=== PATIENT | female | born 1945 | race Caucasian/White ===

== ENCOUNTER 2017-01-02 23:04 | Emergency (ER) | payer MEDICARE ==
--- NOTE | 2017-01-02 23:13 | ED Physician Documentation ---
Chest Pain - HISTORIAN Historian: patient - HPI Chief Complaint: Chest Pain Onset: hours (1 hour ago) Timing: sudden onset Duration: persistent Last known Well Date: 01/02/17 Last Known Well Time: 22:00 Context: rest Severity: moderate Quality: sharp Chest Pain Radiation: no radiation Chest Pain Signs/Symptoms: other (cough, nonproductive). denies: nausea, vomiting, diaphoresis Worsened By: deep breaths, movement Relieved By: rest Further Comments: yes (Sudden onset of left chest pain, no preciptating cause noted. Has had a cough/cold for about one week, has been coughing a lot but seems to be some better today.) - ROS CONST: none GI/: denies: vomiting, nausea, diarrhea SKIN/ENDO: rash Comment: CLL, last WBC count 18,000 - PAST HX RI risk factors: no pertinent history Lung disease: COPD Surgeries/Procedures: cholecysectomy, appendectomy, other (c section) Immunizations: pneumovax, referred to PCP. denies: influenza, zostavax Allergies/Adverse Reactions: Allergies Allergy/AdvReac Type Severity Reaction Status Date / Time amoxicillin trihydrate AdvReac Hives Verified 01/02/17 23:20 [From Augmentin] potassium clavulanate AdvReac Hives Verified 01/02/17 23:20 [From Augmentin] Sulfa (Sulfonamide AdvReac Hives Verified 01/02/17 23:20 Antibiotics) Home Medications: Ambulatory Orders Medication Instructions Recorded Atorvastatin Calcium 10 mg PO QDAY 01/02/17 Bupropion HCl [Wellbutrin Xl] 150 mg PO QDAY 01/02/17 Omeprazole [Prilosec] 40 mg PO QDAY 01/02/17 Azithromycin [Zithromax] 250 mg PO DAILY #4 tablet 01/03/17 - SOCIAL HX Smoking History: greater than 1 pack/day Alcohol Use: none Drug Use: none - FAMILY HX Family HX: CAD over 55, other (hyperlipidemia, CAD) - REVIEWED ASSESSMENTS Nursing Assessment Reviewed: Yes Vitals Reviewed: Yes Progress - Progress Progress: 0006 Chest pain is some better. Still sharp grabbing with a deep breath or movement 0050 Post Toradol injection her pain is much better, almost able to take a deep breath at this time - EKG/XRAY/CT EKG: ST depression (V4 and V5, Mild) ED Results Lab/Radiology - Radiology Radiology Impressions: Chest, 1 view History: LEFT CHEST WALL PAIN, PT HAD PAIN WHEN TAKING A DEEP BREATH Findings: The heart size is normal. Mild atherosclerosis is present of the aorta. The lungs are clear. There is no pleural effusion or pneumothorax identified. The osseous structures are normal. Impression: 1. No acute pulmonary disease. Computed tomography of the chest with contrast History: Pleuritic chest pain and elevated d-dimer Findings: Transverse chest sections are obtained after 90 mL intravenous omnipaque 350. Several borderline enlarged right axillary lymph nodes are present. Coronary artery calcification is observed. There is no evidence of acute pulmonary embolism. Mild atherosclerosis observed. Heart size is normal. Minimal anterior segment left upper lobe infiltrate is present. Minimal nodular infiltrate is present in the superior segment of the left lower lobe. Calcified granulomas are present. 2 tiny posterior left lower lobe nodules are present. Early emphysema is observed. Abdomen sections reveal cholecystectomy. Impression: 1. No evidence for acute pulmonary embolism. 2. Tiny left lower lobe nodules. Recommend noncontrast chest CT followup in 6 months. 3. Minimal left upper lobe and left lower lobe infiltrate. 4. Early emphysema. 5. Shotty right axillary lymph nodes. Recommend mammographic and sonographic followup. Chest Pain Physical Exam - EXAM General Appearance: alert, moderate distress EENT: ENT inspection normal, pharynx normal Neck: nml inspection, no carotid bruit, JVD present Respiratory: no resp. distress, nml breath sounds, manifests distinct pain on movement, left, splinting, other (tenderness to palpation over the left costomanubrial boarder at the 5th-6th rib level). No: wheezes, rales, rhonchi CVS: reg. rate & rhythm, no murmur, no gallop, no friction rub, pulses full Abdomen: soft, no organomegaly, normal bowel sounds, no abdominal bruit, no distension, non-tender Extremities: non-tender, normal range of motion, no evidence of injury, no edema Neuro: oriented X3, mood/affect nml, cognition normal Discharge Clincal Impression: Anterior chest wall pain, Pneumonia Referrals: Primary Doctor,No [Primary Care Provider] - 2 Days Additional Instructions: Take Azithromycin 250mg daily. To see [facility] tomorrow. Take some Aleve 220mg tablets, two tablets twice a day with food or ibuprofen 200mg, three tablets three times a day. Try using a warm/cool compress to the chest area. If your symptoms get worse to return to the ED. Home Medications: Ambulatory Orders Atorvastatin Calcium 10 mg PO QDAY 01/02/17 Bupropion HCl [Wellbutrin Xl] 150 mg PO QDAY 01/02/17 Omeprazole [Prilosec] 40 mg PO QDAY 01/02/17 Azithromycin [Zithromax] 250 mg PO DAILY #4 tablet 01/03/17 Condition: Stable Disposition: 01 HOME, SELF-CARE Decision to Admit: NO Date of Decison to Admit: 01/03/17 Decision Time: 00:57
[2017-01-02] MEDS: ASPIRIN 81 MG CHEW TAB PO ONE (23:17)
[2017-01-02 23:22] LABS: BASOPHILS % 0.9 (0.0-1.5); EOSINOPHILS % 1.4 % (0.0-6.8); MEAN CORPUSCULAR HEMOGLOBIN 31.3 pg (28.0-34.0); MEAN CORPUSCULAR VOLUME 92.2 fl (80.0-100.0); MONOCYTES % 3.8 % (0.0-11.0); NEUTROPHILS # 5.8 # k/uL (1.4-7.7)
[2017-01-02 23:32] LABS: eGFR (African) > 60; eGFR (Non-African) > 60
[2017-01-03] MEDS: KETOROLAC TROMETHAMINE 30 MG/1ML VIAL IVP ONE (00:11)
[2017-01-03] MEDS ORDERED: AZITHROMYCIN 250 MG TABLET PO ONE (00:57)
[2017-01-03 01:16] VITALS: BP 128/74
--- NOTE | 2017-01-03 06:50 | Diagnostic Imaging Report ---
ELIZABETH RIVERS [facility] [address] [facility] [address] [address] Report Submission Date: Jan 02, 2017 11:39:25 PM CDT Patient Study Name: NAKIA CRONIN Date: Jan 02, 2017 11:21:49 PM CDT Modality Type: CR Gender: F Description: CHEST : 47 Institution: [facility] Physician: ELIZABETH RIVERS Chest, 1 view History: LEFT CHEST WALL PAIN, PT HAD PAIN WHEN TAKING A DEEP BREATH Findings: The heart size is normal. Mild atherosclerosis is present of the aorta. The lungs are clear. There is no pleural effusion or pneumothorax identified. The osseous structures are normal. Impression: 1. No acute pulmonary disease. Electronically signed on Jan 02, 2017 11:39:25 PM CDT by: Tee RANGEL
--- NOTE | 2017-01-03 06:50 | Diagnostic Imaging Report ---
ELIZABETH RIVERS [facility] [address] [facility].[address] [address] Report Submission Date: Jan 03, 2017 12:47:40 AM CDT Patient Study Name: NAKIA CRONIN Date: Jan 03, 2017 12:22:44 AM CDT Modality Type: CT\SR Gender: F Description: CT CHEST W/ CONTRAST : 47 Institution: [facility] Physician: ELIZABETH RIVERS Computed tomography of the chest with contrast History: Pleuritic chest pain and elevated d-dimer Findings: Transverse chest sections are obtained after 90 mL intravenous omnipaque 350. Several borderline enlarged right axillary lymph nodes are present. Coronary artery calcification is observed. There is no evidence of acute pulmonary embolism. Mild atherosclerosis observed. Heart size is normal. Minimal anterior segment left upper lobe infiltrate is present. Minimal nodular infiltrate is present in the superior segment of the left lower lobe. Calcified granulomas are present. 2 tiny posterior left lower lobe nodules are present. Early emphysema is observed. Abdomen sections reveal cholecystectomy. Impression: 1. No evidence for acute pulmonary embolism. 2. Tiny left lower lobe nodules. Recommend noncontrast chest CT followup in 6 months. 3. Minimal left upper lobe and left lower lobe infiltrate. 4. Early emphysema. 5. Shotty right axillary lymph nodes. Recommend mammographic and sonographic followup. Electronically signed on Jan 03, 2017 12:47:40 AM CDT by: Hernandez RANGEL
== END 2017-01-03 01:10 | disposition home or self-care (01) ==
LOC: ED 23:04
DX: J18.9 Pneumonia, unspecified organism (principal); R07.89 Other chest pain
CPT/HCPCS: 71010; 71260; 80053; 84484; 85025; 85379; 93005; J1885; 96372; 99283; S1016

== ENCOUNTER → 2017-02-25 | Emergency (ER) | payer MEDICARE ==
[~2017-02-25] MED LIST: 0.9 % SODIUM CHLORIDE 1,000 ML IV ONE; 0.9 % SODIUM CHLORIDE 50 ML IV ONE; cefTRIAXone SODIUM 1 GM VIAL ONE
--- NOTE | 2017-02-25 23:55 | ED Physician Documentation ---
General Adult - HISTORIAN Historian: patient - HPI Stated Complaint: left chest pain Chief Complaint: General Adult Additional Information: Sudden onset CP while sitting in recliner. Feels like sandpaper rubbing when she takes a deep breath or moves. Feels like pneumonia she had a few weeks ago. Dry cough. No sweats or fever. Seen in this ER 01/02, and dx'ed with CAP, treated with a z pack. Per records from [facility], pt hospitalized there 01/08-01/12 with pneumonia, cavitary lesion on CT determined NOT TB, and treated with clindamycin. December CT scan here showed axillary nodes. Onset: minutes - ROS CONST: recent illness (see above) - PAST HX Past History: COPD, other (CLL) Allergies/Adverse Reactions: Allergies Allergy/AdvReac Type Severity Reaction Status Date / Time amoxicillin trihydrate AdvReac Hives Verified 02/25/17 23:40 [From Augmentin] potassium clavulanate AdvReac Hives Verified 02/25/17 23:40 [From Augmentin] Sulfa (Sulfonamide AdvReac Hives Verified 02/25/17 23:40 Antibiotics) Home Medications: Ambulatory Orders Medication Instructions Recorded Atorvastatin Calcium 10 mg PO QDAY 01/02/17 Bupropion HCl [Wellbutrin Xl] 150 mg PO QDAY 01/02/17 Omeprazole [Prilosec] 40 mg PO QDAY 01/02/17 Budesonide/Formoterol Fumarate 2 puff INH BID 02/25/17 [Symbicort 160-4.5 Mcg Inhaler] Amoxicillin [Trimox] 500 mg PO TID #30 capsule 02/26/17 Ascorbic Acid [Vitamin C] 1,000 mg PO D 02/26/17 Aspirin EC [Ecotrin] 81 mg PO D 02/26/17 Cetirizine HCl [Zyrtec] 10 mg PO D 02/26/17 Cholecalciferol [Vitamin D-3] 5,000 mg PO D 02/26/17 Doxycycline Hyclate 100 mg PO BID #20 tablet 02/26/17 Ipratropium [place] [Atrovent] 1 puff INH D 02/26/17 Tramadol HCl [Ultram] 50 mg PO Q4H PRN #15 tablet 02/26/17 Ubidecarenone [Co Q-10] 50 mg PO D 02/26/17 - SOCIAL HX Smoking History: cigarettes (66 years, 1 PPD) - FAMILY HX Family History: No - VITAL SIGNS Vital Signs: Vital Signs Temp Pulse Resp BP Pulse Ox 98.1 F 91 H 20 98/61 97 02/25/17 23:31 02/25/17 23:31 02/25/17 23:31 02/25/17 23:31 02/25/17 23:31 - REVIEWED ASSESSMENTS Nursing Assessment Reviewed: Yes Vitals Reviewed: Yes Progress - Progress Progress: Name: NAKIA CRONIN Date: Feb 25, 2017 11:56:05 PM CDT Modality Type: CR Gender: F Description: CHEST : 47 Institution: [facility] Physician: WAYLON VALDEZ - ER Chest 2 views History: Left-sided chest pain and pneumonia Findings: Lingular infiltrate or mass is present. This was not observed on the January 02, 2017 chest radiograph. The right lung is clear. Hyperinflation and old granulomatous disease are observed. There is no parapneumonic effusion. Heart size is normal. Impression: Hyperinflation and lingular infiltrate versus mass. Recommend short- term radiographic followup to confirm resolution after treatment. If persistent , chest CT is indicated. Electronically signed on Feb 26, 2017 12:08:36 AM CDT by: Hernandez Green ED Results Lab/Radiology - Orders Orders: ED Orders Category Date Time Status Continuous EKG monitoring Q1H Care 02/25/17 23:45 Active Continuous Pulse Oximetry Q1H Care 02/25/17 23:[address] IV Lock 1T Care 02/25/17 23:45 Active CHEST P.A.&LAT 2 VIEWS [RAD] Stat Exams 02/25/17 Ordered BLOOD CULTURE Stat Lab 02/25/17 Ordered CBC/PLATELET/DIFF Routine Lab 02/25/17 Ordered CMP Routine Lab 02/25/17 Ordered TROPONIN I (cTnI) Stat Lab 02/25/17 Ordered URINALYSIS Routine Lab 02/25/17 Ordered EKG WITH COMPARISON Stat Ther 02/25/17 Ordered General Adult Physical Exam - PHYSICAL EXAM GENERAL APPEARANCE: mild distress EENT: eye inspection normal, ENT inspection normal, pharynx normal (Mallampati 2 ) NECK: normal inspection, supple RESPIRATORY: no resp distress, breath sounds normal, other (palpation distal left sternal border reproduces pain) CVS: reg rate & rhythm, heart sounds normal, no murmur ABDOMEN: soft, normal bowel sounds, non-tender RECTAL: deferred BACK: normal inspection, no CVA tenderness, other (no vertebral tenderness) SKIN: warm/dry, normal color EXTREMITIES: non-tender, normal range of motion (transfers easily to and from stretcher ), no evidence of injury NEURO: CN's nml as tested, motor nml, sensation nml, cognition normal Discharge Clincal Impression: Anterior chest wall pain Pneumonia Qualifiers: Pneumonia type: due to unspecified organism Laterality: left Lung location: unspecified part of lung Qualified Code(s): J18.9 - Pneumonia, unspecified organism Prescriptions: Amoxicillin [Trimox] 500 mg PO TID #30 capsule Doxycycline Hyclate 100 mg PO BID #20 tablet Tramadol HCl [Ultram] 50 mg PO Q4H PRN #15 tablet PRN Reason: Pain Referrals: Primary Doctor,No [Primary Care Provider] - 2 Days Additional Instructions: Return to the ER with increased chest pain or if you are not getting better in 2 -3 days. Follow up with Regla Asencio in the next 5-10 days. Outpatient services will contact you with the next available date for a mammogram. Condition: Fair Disposition: 01 HOME, SELF-CARE Decision to Admit: NO Decision Time: 02:40
[2017-02-26 00:12] LABS: BASOPHILS % 0.6 (0.0-1.5); EOSINOPHILS % 1.2 % (0.0-6.8); MEAN CORPUSCULAR HEMOGLOBIN 30.2 pg (28.0-34.0); MEAN CORPUSCULAR VOLUME 89.9 fl (80.0-100.0); MONOCYTES % 3.5 % (0.0-11.0)
[2017-02-26 00:24] LABS: eGFR (African) > 60; eGFR (Non-African) > 60
[2017-02-26] MEDS: KETOROLAC TROMETHAMINE 30 MG/1ML VIAL IVP ONE (01:08)
[2017-02-26] MEDS: 0.9 % SODIUM CHLORIDE 500 ML IV ONE (01:08)
--- NOTE | 2017-02-26 01:18 | Diagnostic Imaging Report ---
WAYLON VALDEZ [facility] [address] Replaced By [facility] [address] [address] Report Submission Date: Feb 26, 2017 12:08:36 AM CDT Patient Study Name: NAKIA CRONIN Date: Feb 25, 2017 11:56:05 PM CDT Modality Type: CR Gender: F Description: CHEST : 47 Institution: [facility] Physician: WAYLON VALDEZ Chest 2 views History: Left-sided chest pain and pneumonia Findings: Lingular infiltrate or mass is present. This was not observed on the January 02, 2017 chest radiograph. The right lung is clear. Hyperinflation and old granulomatous disease are observed. There is no parapneumonic effusion. Heart size is normal. Impression: Hyperinflation and lingular infiltrate versus mass. Recommend short- term radiographic followup to confirm resolution after treatment. If persistent , chest CT is indicated. Electronically signed on Feb 26, 2017 12:08:36 AM CDT by: Hernandez RANGEL
[2017-02-26] MEDS: cefTRIAXone SODIUM ADVANTAGE 1 GM in NORMAL SALINE ADD-VANTAGE 50 ML IV ONE (01:47)
[2017-02-26] MEDS: HYDROcodone /APAP 5/325 1 EACH TABLET PO ONE (04:06)
[2017-02-26 04:12] VITALS: BP 114/61
[2017-02-26 05:48] LABS: APPEARANCE,URINE CLEAR (CLEAR); COLOR,URINE YELLOW (YELLOW)
[2017-02-26 05:49] LABS: OCCULT BLOOD,URINE 1+ (NEGATIVE); PH URINE 5.5 (5.0 - 8.0); UROBILINOGEN URINE 0.2 Eu (0.2-1.0)
== END | disposition home or self-care (01) ==
LOC: ED 23:25
DX: R07.89 Other chest pain (principal); J18.9 Pneumonia, unspecified organism
CPT/HCPCS: 71020; 80053; 81002; 84484; 85025; 87040; 99283; S1016

== ENCOUNTER 2017-08-10 12:43 | Outpatient (CLI) | payer MEDICARE ==
[2017-02-26 04:12] VITALS: BP 114/61
--- NOTE | 2017-08-10 17:51 | Diagnostic Imaging Report ---
JULIA MATUTE [facility] [address] [facility] [address] [address] Report Submission Date: Aug 10, 2017 1:20:05 PM CDT Patient Study Name: NAKIA CRONIN Date: Aug 10, 2017 12:51:06 PM CDT Modality Type: DX Gender: F Description: CHEST : 47 Institution: [facility] Physician: JULIA MATUTE Examination: PA and lateral chest. History: Evaluate lung erwin. CXR, WORSENING COUGH X3 DAYS, WHEEZE,PNEUMONIA, SMOKER, HX OF COPD (Hx) Comparison exam: 25 February 2017 Findings: PA lateral chest demonstrate a normal cardiac and mediastinal silhouette. Vascular calcifications involving the aortic arch. No focal infiltrate. No blunting of the costophrenic margins. Osseous structures are appropriate for age. Impression: No acute appearing pulmonary process. Electronically signed on Aug 10, 2017 1:20:05 PM CDT by: Víctor RANGEL
== END 2017-08-10 12:44 ==
LOC: RAD 12:43
PROVIDERS: ATTEND Family Medicine
DX: J18.9 Pneumonia, unspecified organism (principal)
CPT/HCPCS: 71046

== ENCOUNTER 2017-11-21 09:53 | Day surgery (SDC) | payer MEDICARE ==
[2017-02-26 04:12] VITALS: BP 114/61
--- NOTE | 2017-11-21 15:25 | GI Report ---
REFERRING PHYSICIAN: Dr. Benjamin Son CUT OFF SAWYER LOG: Naman Davidson MD PROCEDURE MEDICATION: Propofol as per anesthesia. INDICATIONS: This 72-year-old woman has had multiple polyps removed from colonoscopies in [facility] and [place]. She had an uncle with colon cancer. She has been a [id number] cigarette smoker and still smokes. She also has chronic leukemia. She varies from constipation to diarrhea. She has had a previous appendectomy, previous cholecystectomy, and . On exam before the procedure, she does have decreased breath sounds. No abdominal tenderness. PROCEDURE PERFORMED: Colonoscopy and polypectomy. PROCEDURE: An Olympus video colonoscope was advanced to the rectum and slowly advanced all the way to the cecum. The appendiceal orifice and ileocecal valve and base of the cecum were normal. She has had a previous appendectomy. The ascending colon and transverse colon with no obvious intraluminal lesions noted. The descending colon was normal until you get to the sigmoid. In the sigmoid, we removed 4 little flat polyps varying around 3 mm in size. At 20 cm, the patient had a 3 to 4 mm sessile polyp removed with electrocautery. Retroflexion of the rectum was normal. Patient tolerated the procedure well. FINDINGS: Five polyps removed, 4 in the sigmoid colon and the larger one at 20 cm that looked somewhat adenomatous. RECOMMENDATIONS: 1. Pending the pathology, she needs her colon re-looked at again in 5 years. 2. I recommend she discontinue tobacco usage which is a risk factor for colon cancer. 3. Increase bulk fiber in her diet. cc: Dr. Benjamin RANGEL
== END 2017-11-21 09:54 ==
LOC: OPSURG 09:53
PROVIDERS: ATTEND Internal Medicine Gastroenterology
DX: Z12.11 Encounter for screening for malignant neoplasm of colon (principal); K63.5 Polyp of colon; D12.5 Benign neoplasm of sigmoid colon; C95.10 Chronic leukemia of unspecified cell type not having achieved remission; R19.4 Change in bowel habit; F17.210 Nicotine dependence, cigarettes, uncomplicated
CPT/HCPCS: 88305; J2001; J2704; J7120; 45385; S1016

== ENCOUNTER 2018-05-03 15:15 | Outpatient (CLI) | payer MEDICARE ==
[2017-02-26 04:12] VITALS: BP 114/61
--- NOTE | 2018-05-03 15:43 | Diagnostic Imaging Report ---
JULIA MATUTE [facility] [address] [facility] [address] [place], [place]. [address] Report Submission Date: May 03, 2018 3:38:45 PM SEARCH ENGINEER Patient Study Name: NAKIA CRONIN Date: May 03, 2018 3:16:20 PM SEARCH ENGINEER Modality Type: DX Gender: F Description: CHEST : 47 Institution: [facility] Physician: JULIA MATUTE Examination: PA and lateral chest. History: Evaluate lung erwin. COUGH AND SOA X1 MONTH, PT STATES SHE HAS COPD (Hx Comparison exam: 10 August 2017 Findings: PA and lateral views of the chest demonstrates a normal cardiac and mediastinal silhouette. Few vascular calcifications involving the aortic arch. No focal infiltrate. No blunting of the costophrenic margins. Osseous structures are appropriate for age. Impression: No acute pulmonary process. Electronically signed on May 03, 2018 3:38:45 PM SEARCH ENGINEER by: Víctor RANGEL
== END 2018-05-03 15:17 ==
LOC: RAD 15:15
PROVIDERS: ATTEND Family Medicine
DX: R05 Cough (principal)
CPT/HCPCS: 71046

== ENCOUNTER 2018-07-10 20:37 | Observation (INO) | payer MEDICARE ==
--- NOTE | 2018-07-10 20:45 | ED Physician Documentation ---
General Adult - HISTORIAN Historian: patient - HPI Stated Complaint: sob, chest pain Chief Complaint: General Adult Onset: hours Timing: still present Severity: moderate Further Comments: yes (Pt is a 73 yo female with sob and hx COPD. Pt has pain in her back which she attributes to her breathing and thinks may be pleurisy. Pt has no pain if she holds her breath. Pain is stabbing when it occurs. No n/v. No diaphoresis.) - ROS CONST: weakness EYES/ENT: none CVS/RESP: chest pain (pain in back), shortness of breath GI/: none MS/SKIN/LYMPH: none - PAST HX Past History: other (CLL, COPD, HLD) Surgeries/Procedures: cholecystectomy, other (appendectomy) Allergies/Adverse Reactions: Allergies Allergy/AdvReac Type Severity Reaction Status Date / Time egg Allergy Hives Verified 07/10/18 23:08 potassium clavulanate AdvReac Hives Verified 07/10/18 23:08 [From Augmentin] Sulfa (Sulfonamide AdvReac Hives Verified 07/10/18 23:08 Antibiotics) Home Medications: Ambulatory Orders Medication Instructions Recorded Atorvastatin Calcium 10 mg PO QDAY 01/02/17 Omeprazole [Prilosec] 40 mg PO QDAY 01/02/17 Budesonide/Formoterol Fumarate 2 puff INH BID 02/25/17 [Symbicort 160-4.5 Mcg Inhaler] Ascorbic Acid [Vitamin C] 1,000 mg PO D 02/26/17 Aspirin EC [Ecotrin] 81 mg PO D 02/26/17 Cetirizine HCl [Zyrtec] 10 mg PO D 02/26/17 Cholecalciferol [Vitamin D-3] 5,000 mg PO D 02/26/17 Ubidecarenone [Co Q-10] 50 mg PO D 02/26/17 Calcium Carbonate [Calcium] 1,000 mg PO DAILY u2 08/10/17 Fish Oil 1,000 Mg Softgel 4,000 mg PO DAILY av 08/10/17 Albuterol Sulfate [Ventolin HFN] 1 appl INH DIRECTED 07/10/18 - SOCIAL HX Smoking History: quit greater than 1 year Alcohol Use: none Drug Use: none - FAMILY HX Family History: No - VITAL SIGNS Vital Signs: Vital Signs Temp Pulse Resp BP Pulse Ox 114/61 02/26/17 03:25 - REVIEWED ASSESSMENTS Nursing Assessment Reviewed: Yes Vitals Reviewed: Yes Progress - Progress Progress: Duoneb HFN Toradol 15 mg IV [place] (5/325) 1 tab po in ER. Levaquin 500 mg IV CXR: Fine reticular opacities are present in each mid to lower lung. Heart size is normal. Minimal lingular atelectasis or scar is present. There is no pleural effusion. Aortic atherosclerosis is noted. Impression: Mild bilateral reticular opacity may represent edema or bronchitis. Admit to ER doctor, r/o GA, bronchitis, pleuritic pain. - EKG/XRAY/CT EKG: NSR (HR=84, normal axis, normal NM inteval, artifact.) - Additional EKG/XRAY/Consults EKG #2: NSR, nonspecific ST T wave chg (HR=82; normal axis; normal NM interval (repeated because of artifact on first EKG)) General Adult Physical Exam - PHYSICAL EXAM GENERAL APPEARANCE: moderate distress EENT: pharynx normal NECK: normal inspection, supple RESPIRATORY: no resp distress, chest non-tender, wheezes (mild) CVS: reg rate & rhythm, heart sounds normal ABDOMEN: soft, no organomegaly, normal bowel sounds BACK: normal inspection, no CVA tenderness SKIN: warm/dry, normal color EXTREMITIES: non-tender, normal range of motion, no evidence of injury NEURO: oriented X3, motor nml, sensation nml, other (anxious) Discharge Clincal Impression: chest pain, sob, bronchitis, pleurisy Referrals: Benjamin Son MD [Primary Care Provider] - Condition: Stable Disposition: ADMITTED INPATIENT Decision to Admit: NO Decision Time: 23:59
[2018-07-10] MEDS ORDERED: IPRATROPIUM/ALBUTEROL SULFATE 3 ML AMPUL.NEB NEB ONE (21:09)
[2018-07-10] MEDS ORDERED: KETOROLAC TROMETHAMINE 15 MG/ML VIAL IV ONE (21:31)
[2018-07-10] MEDS ORDERED: KETOROLAC TROMETHAMINE 30 MG/1ML VIAL ONE (21:36)
[2018-07-10 21:44] LABS: MEAN CORPUSCULAR HEMOGLOBIN 30.5 pg (28.0-34.0)
[2018-07-10 22:25] LABS: EOSINOPHILS % 1 % (0-7); MONOCYTES % 6 % (0-11); SEGMENTED NEUTROPHILS % 45 % (39-79)
[2018-07-10 22:26] LABS: HYPOCHROMASIA 1+ (NEGATIVE); PLT EST. EST. AGREES W/PLT CT
[2018-07-10] MEDS ORDERED: HYDROcodone /APAP 5/325 1 EACH TABLET PO ONE (23:18)
[2018-07-10] MEDS ORDERED: HYDROcodone /APAP 5/325 1 EACH TABLET PEG PRN (23:51)
[2018-07-10] MEDS ORDERED: LEVOFLOXACIN IN DEXTROSE 5 % 500 MG/100 ML BAG IV ONE (23:51)
[2018-07-11 00:41] VITALS: BMI 30.5
[2018-07-11] MEDS: ALBUTEROL SULFATE 2.5 MG/3 ML AMPUL.NEB NEB SCH ×3 (06:04→08:38)
--- NOTE | 2018-07-11 06:38 | Diagnostic Imaging Report ---
LEXUS MCMILLAN [facility] [address] [facility] [address] [address] Report Submission Date: Jul 10, 2018 9:34:11 PM [employer] Patient Study Name: NAKIA CRONIN Date: Jul 10, 2018 9:09:07 PM [employer] Modality Type: DX Gender: F Description: CHEST 1VIEW : 47 Institution: [facility] Physician: LEXUS MCMILLAN Portable chest History: Shortness of breath Findings: Fine reticular opacities are present in each mid to lower lung. Heart size is normal. Minimal lingular atelectasis or scar is present. There is no pleural effusion. Aortic atherosclerosis is noted. Impression: Mild bilateral reticular opacity may represent edema or bronchitis. Electronically signed on Jul 10, 2018 9:34:11 PM [employer]DEM M[employer] STICKER by: Hernandez RANGEL
[2018-07-11] MEDS ORDERED: ALBUTEROL SULFATE 2.5 MG/3 ML AMPUL.NEB NEB ONE (06:51)
[2018-07-11] MEDS ORDERED: methylPREDNISolone SOD SUCC 125 MG/2 ML VIAL IVP ONE (07:09)
[2018-07-11] MEDS ORDERED: ATORVASTATIN CALCIUM 20 MG TABLET PO ONE (07:37)
[2018-07-11] MEDS ORDERED: KETOROLAC TROMETHAMINE 30 MG/1ML VIAL IV ONE (08:33)
[2018-07-11] MEDS: IPRATROPIUM/ALBUTEROL SULFATE 3 ML AMPUL.NEB NEB SCH ×2 (08:38→13:40)
[2018-07-11] MEDS: HYDROcodone /APAP 5/325 1 EACH TABLET PO PRN ×2 (08:47→14:56)
[2018-07-11] MEDS ORDERED: SALINE FLUSH 10 ML DISP.SYRIN IV SCH (09:00)
[2018-07-11] MEDS ORDERED: ATORVASTATIN CALCIUM 10 MG TABLET PO SCH (09:00)
[2018-07-11] MEDS ORDERED: CHOLECALCIFEROL (VIT D3) 1,000 UNIT TABLET PO SCH (09:00)
[2018-07-11] MEDS ORDERED: CALCIUM CARB 500 MG TAB.CHEW PO SCH (09:00)
[2018-07-11] MEDS ORDERED: methylPREDNISolone SOD SUCC 40 MG/ML VIAL IVP SCH (12:00)
[2018-07-11 12:10] LABS: COLOR,URINE YELLOW (YELLOW)
[2018-07-11 12:11] LABS: APPEARANCE,URINE CLEAR (CLEAR); OCCULT BLOOD,URINE NEGATIVE (NEGATIVE); PH URINE 5.5 (5.0 - 8.0); UROBILINOGEN URINE 0.2 Eu (0.2-1.0)
--- NOTE | 2018-07-11 17:42 | Discharge Summary ---
Discharge Summary - Discharge Sumary History of Present Illness: Patient presented to ED with pleuritic chest pain. Chest xray shows probable bronchitis. Patient was admitted for chest pain and ruled out with serial troponins and EKG, all which were negative. Additional Instructions: 1. Levaquin daily x 7 days. 2. Prednisone taper as directed. 3. Use Logan sparingly. 4. Follow up with PCP within 3 days. Condition at Discharge: Stable Home Medications: Ambulatory Orders Medication Instructions Recorded Atorvastatin Calcium 10 mg PO QDAY 01/02/17 Omeprazole [Prilosec] 40 mg PO QDAY 01/02/17 Budesonide/Formoterol Fumarate 2 puff INH BID 02/25/17 [Symbicort 160-4.5 Mcg Inhaler] Ascorbic Acid [Vitamin C] 1,000 mg PO D 02/26/17 Aspirin EC [Ecotrin] 81 mg PO D 02/26/17 Cetirizine HCl [Zyrtec] 10 mg PO D 02/26/17 Cholecalciferol [Vitamin D-3] 5,000 mg PO D 02/26/17 Ubidecarenone [Co Q-10] 50 mg PO D 02/26/17 Calcium Carbonate [Calcium] 1,000 mg PO DAILY u2 08/10/17 Fish Oil 1,000 Mg Softgel 4,000 mg PO DAILY av 08/10/17 Albuterol Sulfate [Ventolin HFN] 1 appl INH DIRECTED 07/10/18 Consultations this Visit: None Procedures this Visit: None Allergies/Adverse Reactions: Allergies Allergy/AdvReac Type Severity Reaction Status Date / Time egg Allergy Mild Hives Verified 07/11/18 07:45 potassium clavulanate Allergy Hives Verified 07/11/18 07:45 [From Augmentin] Sulfa (Sulfonamide Allergy Hives Verified 07/11/18 07:45 Antibiotics) Discharge Summary: Patient was admitted for chest pain rule out and bronchitis. Serial troponins and EKG was negative for ischemia. Solumedrol, Duoneb, Levaquin and norco was utilized as treatment plan. Patient took Logan readily. Patient was discharged in good condition improved from admission.
[2018-07-11 18:04] VITALS: BP 133/59
== END 2018-07-11 18:40 | disposition home or self-care (01) ==
LOC: ED 20:37 → SOUTH 23:47
PROVIDERS: ADMIT Physician Assistant Medical; ATTEND Physician Assistant Medical
DX: J40 Bronchitis, not specified as acute or chronic (principal); J44.9 Chronic obstructive pulmonary disease, unspecified; R07.89 Other chest pain; M54.5 Low back pain; R09.1 Pleurisy
CPT/HCPCS: 71045; 80053; 81002; 82550; 82553; 83880; 84484; 85025; 85379; 93005; 94640; 94760; 96374; 96375; 99283; A9270; G0378; J1030; J1885; J1956; J2930; 99217; J2920; S1016

== ENCOUNTER 2018-09-23 13:16 | Emergency (ER) | payer MEDICARE ==
--- NOTE | 2018-09-23 13:44 | ED Physician Documentation ---
Low Back Pain - HISTORIAN Historian: patient - HPI Stated Complaint: low back pain Chief Complaint: Low Back Pain/ Injury History: back pain Onset: days ago (7) Duration: continues in ED Recent Injury: No (although she has been to chriopractor ) Where: home Other Injuries: back Severity: moderate Quality: other (on and off more increased with movement or pressure. She denies any injury ) Associated Symptoms: difficulty walking. denies: fever, constipation, incontinence, nausea, vomiting, problems urinating, light-headedness, dizziness, numbness Worsened By:: supine Relieved By: nothing Further Comments: yes (She reports she has had low back pain in the past - she usually goes to the chiropractor and this week what seemed to be similar pain and she went to the chiropractor Sophia and again yesterday with no relief. She states he told her not to take any further ibuprofen because her body needed to have the inflammation to fight off the injury. She denies any new injury. She states she actually had increased pain post chiropractor. No loss of control of bowel or bladder. She states her lower legs are more swollen but she is not able to sit or lay elevating her feet) - ROS CONST: no problems MS/SKIN/LYMPH: denies: rash - PAST HX Past History: back pain Allergies/Adverse Reactions: Allergies Allergy/AdvReac Type Severity Reaction Status Date / Time egg Allergy Mild Hives Verified 09/23/18 13:36 potassium clavulanate Allergy Hives Verified 09/23/18 13:36 [From Augmentin] Sulfa (Sulfonamide Allergy Hives Verified 09/23/18 13:36 Antibiotics) Home Medications: Ambulatory Orders Medication Instructions Recorded Atorvastatin Calcium 10 mg PO QDAY 01/02/17 Omeprazole [Prilosec] 40 mg PO QDAY 01/02/17 Budesonide/Formoterol Fumarate 2 puff INH BID 02/25/17 [Symbicort 160-4.5 Mcg Inhaler] Ascorbic Acid [Vitamin C] 1,000 mg PO D 02/26/17 Aspirin EC [Ecotrin] 81 mg PO D 02/26/17 Cetirizine HCl [Zyrtec] 10 mg PO D 02/26/17 Cholecalciferol [Vitamin D-3] 5,000 mg PO D 10/21/17 Ubidecarenone [Co Q-10] 50 mg PO D 02/26/17 Calcium Carbonate [Calcium] 1,000 mg PO DAILY u2 08/10/17 Fish Oil 1,000 Mg Softgel 4,000 mg PO DAILY av 08/10/17 Albuterol Sulfate [Ventolin HFN] 1 appl INH DIRECTED 07/10/18 Hydrocodone/Acetaminophen [[facility] 1 each PO Q6 #10 tablet 07/11/18 5-325 Tablet] Atorvastatin Calcium 10 mg PO DAILY 09/23/18 - SOCIAL HX Smoking History: non-smoker Alcohol Use: none Drug Use: none - FAMILY HX Family History: none - VITAL SIGNS Vital Signs: Vital Signs Temp Pulse Resp BP Pulse Ox 98.1 F 72 19 178/85 96 09/23/18 13:16 09/23/18 13:16 09/23/18 13:16 09/23/18 13:16 09/23/18 13:16 - REVIEWED ASSESSMENTS Nursing Assessment Reviewed: Yes Vitals Reviewed: Yes Progress - Progress Progress: 1425: discussed results and plan. She is questioning meds due to advise of the chiropractor. Daughter and she understand the plan. DG ED Results Lab/Radiology - Radiology Radiology Impressions: Lumbar spine Clinical history pain Technique AP lateral oblique cone down Findings: Levoscoliosis is present. Anterior subluxation of L4 on L5 is present. There is retrolisthesis of L2 on L3 and L3 on L4. Aortoiliac vascular calcification is present. 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 The gallbladder has been removed Impression: Levoscoliosis. Spondylosis. Vascular calcification Electronically signed on September 23, 2018 2:07:53 PM CDT by: Charles Lopez - Orders Orders: ED Orders Category Date Time Status LUMBAR SPINE WITH OBLIQUES [L SPINE 4 VIEWS] [RAD] Stat Exams 09/23/18 Completed Ketorolac Tromethamine [Toradol] Med 09/23/18 14:21 Once 60 mg IM NOW ONE methylPREDNISolone ACETATE [DEPO-Medrol] Med 09/23/18 14:22 Once 80 mg IM NOW ONE Low Back Pain/Injury - Physical Exam General Appearance: no acute distress, alert EENT: eye inspection normal, no signs of dehydration Neck: non-tender Resp/CVS: chest non-tender, breath sounds nml, heart sounds nml, no resp. distress, lungs clear, reg. rate & rhythm Abdomen: non-tender Back: painless ROM (lateral bending to right or left ), muscle spasm (left lower lateral back ) Rectal/Genital: nml ext.inspection Neuro/Psych: oriented x3 Skin: warm/dry Extremities: non-tender, edema Discharge Clincal Impression: Low back pain Qualifiers: Chronicity: acute Back pain laterality: left Sciatica presence: unspecified whether sciatica present Qualified Code(s): M54.5 - Low back pain Referrals: Bnejamin Son MD [Primary Care Provider] - 2 Days Comments: 1. 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 Ibuprofen 800 mg take 1 by mouth every 12 hours as needed for pain 3. Medrol dose pack - take as directed start at 09.24.18 after noon 4. Ice/Heat 5. Follow up with PCP Tuesday 6. Return to ER for any increasing symptoms Condition: Stable Disposition: 01 HOME, SELF-CARE Decision to Admit: NO Date of Decison to Admit: 09/23/18 Decision Time: 14:30
--- NOTE | 2018-09-23 14:13 | Diagnostic Imaging Report ---
LUPE LUCAS [facility] [address] [facility] [address] [place], [place]. [address] Report Submission Date: September 23, 2018 2:07:53 PM CDT Patient Study Name: NAKIA CRONIN Date: September 23, 2018 1:43:04 PM CDT Modality Type: DX Gender: F Description: L SPINE 4 VIEWS : 47 Institution: [facility] Physician: LUPE LUCAS Lumbar spine Clinical history pain Technique AP lateral oblique cone down Findings: Levoscoliosis is present. Anterior subluxation of L4 on L5 is present. There is retrolisthesis of L2 on L3 and L3 on L4. Aortoiliac vascular calcification is present. 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 The gallbladder has been removed Impression: Levoscoliosis. Spondylosis. Vascular calcification Electronically signed on September 23, 2018 2:07:53 PM CDT by: Charles RANGEL
[2018-09-23] MEDS ORDERED: KETOROLAC TROMETHAMINE 60 MG/2 ML VIAL IM ONE (14:21)
[2018-09-23] MEDS ORDERED: methylPREDNISolone ACETATE 80 MG/ML VIAL IM ONE (14:22)
[2018-09-23 14:56] VITALS: BP 152/74
== END 2018-09-23 14:48 | disposition home or self-care (01) ==
LOC: ED 13:16
DX: M54.5 Low back pain (principal)
CPT/HCPCS: 72110; 96372; 99283; 99284; J1040; J1885

== ENCOUNTER 2019-05-08 12:46 | Emergency (ER) | payer MEDICARE ==
[2019-05-08 13:04] VITALS: BP 166/79
--- NOTE | 2019-05-08 13:09 | ED Physician Documentation ---
Eye Problem - HISTORIAN Historian: patient - HPI Stated Complaint: R EYE DRAINAGE Chief Complaint: Eye Problems Additional Information: 74 year old female presents with c/o right eye redness, drainage, itching, and matted when she woke up this morning. She states that she also woke up with cough and congestion; does not believe she has had any fever. Onset: hours Associated symptoms: burining, itching, redness, matting Location: right eye Severity: moderate Apparent Injury: no Context: pink eye Where: home Other Injuries: denies: head - ROS CONST: no problems MS/SKIN/LYMPH: denies: weakness CVS/RESP: cough EYES/ENT: nasal drainage GI/: denies: nausea, vomiting NEURO: denies: headache - PAST HX Past History: other (leukemia, bronchitis) Immunizations: UTD Allergies/Adverse Reactions: Allergies Allergy/AdvReac Type Severity Reaction Status Date / Time egg Allergy Mild Hives Verified 05/08/19 13:00 potassium clavulanate Allergy Hives Verified 05/08/19 13:00 [From Augmentin] Sulfa (Sulfonamide Allergy Hives Verified 05/08/19 13:00 Antibiotics) Home Medications: Ambulatory Orders Medication Instructions Recorded Atorvastatin Calcium 10 mg PO QDAY 01/02/17 Omeprazole [Prilosec] 40 mg PO QDAY 01/02/17 Budesonide/Formoterol Fumarate 2 puff INH BID 02/25/17 [Symbicort 160-4.5 Mcg Inhaler] Ascorbic Acid [Vitamin C] 1,000 mg PO D 02/26/17 Aspirin EC [Ecotrin] 81 mg PO D 02/26/17 Cetirizine HCl [Zyrtec] 10 mg PO D 02/26/17 Cholecalciferol [Vitamin D-3] 5,000 mg PO D 02/26/17 Ubidecarenone [Co Q-10] 50 mg PO D 02/26/17 Calcium Carbonate [Calcium] 1,000 mg PO DAILY u2 08/10/17 Fish Oil 1,000 Mg Softgel 4,000 mg PO DAILY av 08/10/17 Albuterol Sulfate [Ventolin HFN] 1 appl INH DIRECTED 07/10/18 Hydrocodone/Acetaminophen [[facility] 1 each PO Q6 #10 tablet 07/11/18 5-325 Tablet] Atorvastatin Calcium 10 mg PO DAILY 09/23/18 Azithromycin [Zithromax] 250 mg PO DAILY #6 tablet 05/08/19 Polymyxin B/Trimethoprim Opth 1 drop OP Q3H #1 bottle 05/08/19 [Polytrim Opth] - SOCIAL HX Smoking History: quit greater than 1 year Alcohol Use: none Drug Use: none - FAMILY HX Family History: none - VITAL SIGNS Vital Signs: Vital Signs Temp Pulse Resp BP Pulse Ox 98.2 F 84 18 166/79 95 05/08/19 12:50 05/08/19 12:50 05/08/19 12:50 05/08/19 12:50 05/08/19 12:50 - REVIEWED ASSESSMENTS Nursing Assessment Reviewed: Yes Vitals Reviewed: Yes Eye Problem Physical Exam - Physical Exam General Appearance: no acute distress, alert Visual Acuity: see nursing assessment Eyelids: nml inspection, erythema (R) Conjunctiva and Sclera: injected (R), exudate (R) Corneas: nml inspection EOM: intact Pupils: equal Post Segments: hemorrhage(s) (L) Head/ENT: nml inspection Skin: nml color, warm, skin intact Neck/Back: nml inspection, non-tender Respiratory: breath sounds normal CVS: heart sounds normal, equal pulses Abdomen: non-tender Neuro/Psych: oriented x3, neuro intact, mood/affect nml Discharge Clincal Impression: Conjunctivitis, right eye, Upper respiratory infection Prescriptions: Azithromycin [Zithromax] 250 mg PO DAILY #6 tablet Polymyxin B/Trimethoprim Opth [Polytrim Opth] 1 drop OP Q3H #1 bottle Referrals: Benjamin Son MD [Primary Care Provider] - 2 Days Additional Instructions: Instill 1-2 drops of Polymxin B into the affected eye every 3 hours while awake for 7 days Take Zithromax for upper resp. infection; 2 tabs. today, then 1 tab. daily for 4 days Good handwashing Try not to rub eyes Follow up with PCP next week for re-evaluation as needed Condition: Good Disposition: 01 HOME, SELF-CARE Decision to Admit: NO Decision Time: 13:08
== END 2019-05-08 13:04 | disposition home or self-care (01) ==
LOC: ED 12:46
DX: H10.31 Unspecified acute conjunctivitis, right eye (principal); J06.9 Acute upper respiratory infection, unspecified; F17.210 Nicotine dependence, cigarettes, uncomplicated
CPT/HCPCS: 99282; 99284